=== PATIENT | female | born 1990 | race Caucasian/White ===

== ENCOUNTER → 2020-07-16 10:42 | Outpatient (BNVA) | payer OTHER, SELFPAY | PROVIDERS: Visit Provider Emergency Medicine | DX: M79.671 Pain in right foot (principal); S99.921A Unspecified injury of right foot, initial encounter; X58.XXXA Exposure to other specified factors, initial encounter | CPT/HCPCS: 73630; 80307 ==

== ENCOUNTER 2021-02-23 23:50 | Emergency (ER) | payer SELFPAY ==
[2021-02-24 00:17] VITALS: BP 126/86; PULSE 108; RESP 16; TEMP 36.6; O2SAT 99; BMI 31.3
--- NOTE | 2021-02-24 00:51 | USR_ITS ---
PROCEDURE INFORMATION: Exam: US Duplex Left Lower Extremity Veins, Limited Exam date and time: 02/24/2021 1:00 AM Age: 31 years old Clinical indication: Pain; Leg, upper and leg, lower; Left; Additional info: Pain, swelling, HX of dvts TECHNIQUE: Imaging protocol: Real-time Duplex ultrasound of the Left Lower Extremity with 2-D cameron scale, color Doppler flow and spectral waveform analysis with image documentation. Limited exam focused on the left lower extremity veins. COMPARISON: No relevant prior studies available. FINDINGS: Left deep veins: Unremarkable. The common femoral, femoral, proximal profunda femoral, popliteal, posterior tibial and peroneal veins are patent without thrombus. Normal compressibility, augmentation response and Doppler waveforms. Left superficial veins: Unremarkable. Saphenofemoral junction is patent without thrombus. Soft tissues: Unremarkable. US/CV venous duplex [facility] [id number] IMPRESSION: No sonographic evidence of deep vein thrombosis.
--- NOTE | 2021-02-24 01:07 | ED_ITS ---
HPI - Extremity Problem General: Chief complaint: Extremity Problem,Nontraumatic Stated complaint: lower back and hip pain Time Seen by Provider: 02/23/21 23:56 Source: patient Mode of arrival: wheelchair Limitations: no limitations History of Present Illness: HPI Narrative: Patient is a 31-year-old female who presents to ED today with a complaint of left lower extremity pain. Patient tells me pain initially started approximately 2 weeks ago but has progressively worsened. She feels like her extremity is swollen. She states pain starts at the left lower back and radiates down the posterior aspect of her left thigh and down into her calf. She feels like her thigh and calf are swollen. 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 Patient tells me she is not on anticoagulation as they told her it would require SQ injections in her abdomen and she refused. She reports a previous history of sciatica when she was . MD Complaint: extremity pain and extremity swelling Pain Consistency: constant Location: left and lower extremity Quality: sharp Relieving factors: nothing Exacerbating factors: weight bearing and walking Associated symptoms: Reports no associated symptoms; Deny chest pain or fever(s) Review of Systems Const: Denies: fever(s), chills, body aches, fatigue or malaise Card: Denies: chest pain, palpitations, irregular heart rhythm, edema, swelling of feet/ankles, syncope, pre-syncope, dyspnea on exertion or leg pain with exertion Resp: Denies: dyspnea Musc: Reports: extremity pain and extremity swelling; Denies: joint redness or joint warmth Neuro: Reports: difficulty walking (secondary to pain); Denies: numbness in extremities or sensory changes PFS ED PFSH: Social History (Updated 07/16/20 @ 10:28 by Yulissa Grimaldo CMA) Smoking and tobacco status: current every day smoker cigarettes Packs smoked per day: 1, e-cigarettes E-Cigarette Details: vaporizer device and smokeless tobacco Alcohol intake: former Year of sobriety/quit date alcohol: 2018 Physical Exam Const: COMMON NORMALS: no acute distress, patient oriented x3, no limitations and alert GENERAL APPEARANCE: cooperative Resp: COMMON NORMALS: normal respiratory effort and clear to auscultation bilaterally AUSCULTATION: clear to auscultation bilaterally Cardio: COMMON NORMALS: regular rate and regular rhythm RATE: regular rate RHYTHM: regular rhythm Back/Pelvis: COMMON NORMALS: thoracic and lumbar spine normal to inspection, no thoracic nor lumbar tenderness and thoraco-lumbar ROM normal THORACIC SPINE/UPPER BACK: Yes thoracic ROM normal and No thoracic spinal tenderness LUMBAR SPINE/LOWER BACK: Yes lumbar ROM normal and No lumbar spinal tenderness PELVIS: Yes sciatic notch tenderness SACROILIAC JOINTS: Yes SI joint(s) abnormal SI joint details: tender to palpation and pain elicited by passive hyperextension of lower extremity Extremity: OTHER: pt reports tenderness throughout posterior aspect of L LE; distal pulses intact; brisk cap refill; sensory intact; I do not appreciate any obvious swelling; no color/temp changes noted Neuro: COMMON NORMALS: patient oriented x3 SENSORIUM/ORIENTATION: Yes alert Course Vital Signs: Vital signs: Vital Signs Temperature 97.8 F 02/24/21 00:17 Pulse Rate 108 H 02/24/21 00:17 Respiratory Rate 16 02/24/21 00:17 Blood Pressure 126/86 02/24/21 00:17 Pulse Oximetry 99 02/24/21 00:17 MDM - Extremity (Nontraumatic) MDM Narrative: Medical decision making narrative: Patient's physical exam is consistent with left-sided sciatica however given the patient's history I did obtain ultrasound imaging which was negative for DVT. She will be placed on NSAIDs, muscle relaxers, steroids and recommend follow-up with PCP. Imaging Data^: US venous: My impression: Per US Donita tech-no DVT Discharge Plan Discharge Patient Disposition: Home Clinical Impression: Left sided sciatica Condition: Stable Prescriptions: New cyclobenzaprine 10 mg tablet 10 mg PO TID Qty: 14 RF: 0 ibuprofen 800 mg tablet 800 mg PO Q8H PRN (Reason: pain) Qty: 20 RF: 0 Medrol (Henri) 4 mg tablets,dose pack See Rx Instructions .ROUTE .COMPLEX Qty: 21 RF: 0 Discharge Orders: Discharge ED (Routine); Ordered 02/24/21 Ordered By: Danya Thornton Patient Instructions: Sciatica (ED) Activity Restrictions/Additional Instructions: Please follow-up with your primary care provider in approximately 1 week if symptoms do not improve. You may return to the emergency department for worsening or severe pain, inability to urinate, bowel incontinence, swelling to your leg, color or temperature changes to your extremity, or any other concerns you may have. Coding Level of Care Code ED Social And Political Studies Professor for Chg Fwd Exam Expanded Problem Focused
[2021-02-24] MEDS: orphenadrine 30 mg/mL Inj 2 mL 60 MG IM (01:42)
[2021-02-24] MEDS: ketorolac 60 mg/2 mL INJ IM (01:42)
[2021-02-24 01:50] VITALS: BP 126/86; PULSE 99; RESP 16; O2SAT 99
== END 2021-02-24 01:40 | disposition home or self-care (01) ==
PROVIDERS: Emergency Provider Physician Assistant
DX: M54.32 Sciatica, left side (principal); F17.210 Nicotine dependence, cigarettes, uncomplicated
CPT/HCPCS: 93971; 96372; 99283; J1885; J2360

== ENCOUNTER 2022-01-27 19:18 | Emergency (ER) | payer SELFPAY ==
[2022-01-27 19:19] VITALS: BP 134/74; PULSE 96; RESP 14; TEMP 36.4; O2SAT 99; BMI 31.3
--- NOTE | 2022-01-27 19:31 | XRR_ITS ---
PROCEDURE INFORMATION: Exam: XR Chest Exam date and time: 01/27/2022 7:31 PM Age: 32 years old Clinical indication: Pain; Right-sided; Additional info: Cp TECHNIQUE: Imaging protocol: XR of the chest. Views: 1 view. COMPARISON: No relevant prior studies available. FINDINGS: Lungs: Unremarkable. No consolidation. Pleural spaces: Unremarkable. No pleural effusion. No pneumothorax. Heart/Mediastinum: Unremarkable. No cardiomegaly. Bones/joints: Unremarkable. XR/XR chest 1V portable [id number] IMPRESSION: No acute findings.
--- NOTE | 2022-01-27 19:31 | ECG_ITS ---
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 Measurements Intervals [place]man Rate: 110 P: 76 FL: 134 QRS: 73 QRSD: 81 T: 64 QT: 320 QTc: 433 Interpretive Statements SINUS TACHYCARDIA NONSPECIFIC ST & T-WAVE ABNORMALITY ABNORMAL RHYTHM ECG No previous ECG available for comparison Electronically Signed On 01-27-2022 21:54:12 ECONOMETRICIAN by Espinoza Mcmahan M.D. [id number]
--- NOTE | 2022-01-27 19:40 | ED_ITS ---
HPI - Chest Pain General: Chief Complaint: Chest Pain Stated Complaint: Chest Pain Time Seen by Provider: 01/27/22 19:31 History of Present Illness: Patient states she complains of pain under her right arm axilla area that radiates into her neck and shoulder. Patient says it hurts with deep breath and so she not been breathing the. She is a hurts to push on the area in her right armpit also. Patient denies any shortness of breath nausea or vomiting. But she has had some reflux. Patient vapes on a regular basis. Denies any fever or chills. Has history of blood clots x2 dur ing in her lower extremities that she said she had stents and had to have blood clots suctioned out and she did not get placed on blood thinners chronically. Associated symptoms: Deny abdominal pain, dyspnea, fever(s), nausea or vomiting Review of Systems Narrative: Patient has tenderness in the right armpit area it also extends up to the neck and right shoulder area. Hurts with deep inspiration. Const: Denies: fever(s), chills or body aches Eyes: Denies: eye discomfort ENMT: Denies: throat pain Card: Denies: chest pain Resp: Reports: pain on inspiration (Right chest.); Denies: dyspnea GI: Denies: abdominal pain, nausea or vomiting Skin/Breast: Denies: rash Neuro: Denies: headache(s) Psych: Denies: depression or suicidal ideation [facility] ED PFSH: Social History (Updated 07/16/20 @ 10:28 by Yulissa Grimaldo [facility]) Smoking and tobacco status: current every day smoker cigarettes Packs smoked per day: 1, e-cigarettes E-Cigarette Details: vaporizer device and smokeless tobacco Alcohol intake: former Year of sobriety/quit date alcohol: 2018 Physical Exam 2 Const: COMMON NORMALS: no acute distress, patient oriented x3 and alert HENMT: COMMON NORMALS: normocephalic and external ears normal HEAD & SCALP: normocephalic EXTERNAL EAR: Yes external ears normal Eye: COMMON NORMALS: EOMs intact bilaterally Neck/C-Spine: COMMON NORMALS: no JVD Resp: COMMON NORMALS: normal respiratory effort and No use of accessory muscles Cardio: COMMON NORMALS: no JVD GI: INSPECTION: Yes normal to inspection Extremity: COMMON NORMALS: normal to inspection and full ROM Neuro: COMMON NORMALS: patient oriented x3 SENSORIUM/ORIENTATION: Yes alert Psych: COMMON NORMALS: mental status grossly normal Skin: COMMON NORMALS: no rashes or lesions noted NARRATIVE SKIN EXAM: Tenderness palpation to right armpit right anterior cervical and right anterior shoulder area. GENERAL SKIN EXAM: no rashes or lesions noted Course Vital Signs: Vital signs: Vital Signs Temperature 97.6 F 01/27/22 19:19 Pulse Rate 96 01/27/22 19:19 Respiratory Rate 14 01/27/22 19:19 Blood Pressure 134/74 01/27/22 19:19 Pulse Oximetry 99 01/27/22 19:19 MDM - Chest Pain Medical Decision Making Patient presents with chest wall type pain pain in the right armpit rating up to the neck. Hurts with palpation deep inspiration. Patient denies fever chills or any signs of abscess. Denies any chest heaviness. Denies any nausea or vomiting. Does have slight heartburn at times. Labs did not show elevated white count but did show slight elevated alkaline phos. Troponin was negative. Radiology and EKG were done on were negative. Dimer was negative. Patient encouraged follow-up with primary care provider in either this week and see if need for a HIDA scan and further evaluation is necessary. When treated empirically with antibiotics in case she is developing an abscess down her right armpit area even though I did not feel any lumps or patient has had a history of this in the past. Patient does not have symptoms of gallbladder disease presently and denies vomiting or worsening pain with eating greasy or fatty or fried type foods. Lab Data : 01/27/22 20:15 01/27/22 20:15 Laboratory Results WBC 9.9 10^3/uL (4.0-10.0) 01/27/22 20:15 RBC 4.20 10^6/uL (4.1-5.3) 01/27/22 20:15 Hgb 10.5 g/dL (11.5-15.3) L 01/27/22 20:15 Hct 34.3 % (37.0-47.0) L 01/27/22 20:15 MCV 81.7 fl (81-99) 01/27/22 20:15 MCH 25.0 pg (28.0-34.0) L 01/27/22 20:15 MCHC 30.6 g/dL (30.0-36.0) 01/27/22 20:15 RDW 14.7 % (12.1-15.1) 01/27/22 20:15 Plt Count 360 10^3/cmm (130-400) 01/27/22 20:15 MPV 9.9 fL (7.4-10.4) 01/27/22 20:15 Neut % (Auto) 63.0 % 01/27/22 20:15 Lymph % (Auto) 26.5 % 01/27/22 20:15 Fleming % (Auto) 5.5 % 01/27/22 20:15 Eos % (Auto) 3.3 % 01/27/22 20:15 Baso % (Auto) 1.4 % 01/27/22 20:15 Neut # (Auto) 6.23 10^3/uL (1.8-7.7) 01/27/22 20:15 Lymph # (Auto) 2.6 10^3/uL (0.8-4.8) 01/27/22 20:15 Fleming # (Auto) 0.6 10^3/uL (0.2-0.9) 01/27/22 20:15 Eos # (Auto) 0.3 10^3/uL (0.0-0.8) 01/27/22 20:15 Baso # (Auto) 0.1 10^3/uL (0.0-0.1) 01/27/22 20:15 Nucleated RBC % (auto) 0 % 01/27/22 20:15 Nucleated RBCs # 0.0 /100WBC 01/27/22 20:15 D-Dimer 0.43 ug/mIFEU (0-0.59) 01/27/22 20:15 Sodium 136 mmol/L (136-145) 01/27/22 20:15 Potassium 3.6 mmol/L (3.5-5.1) 01/27/22 20:15 Chloride 99 mmol/L (98-107) 01/27/22 20:15 Carbon Dioxide 23 mmol/L (22-29) 01/27/22 20:15 Anion Gap 17.6 (5-19) 01/27/22 20:15 BUN 9 mg/dL (6-20) 01/27/22 20:15 Creatinine 0.7 mg/dL (0.5-0.9) 01/27/22 20:15 GFR Calculation 97.0 mL/min (90-130) 01/27/22 20:15 Glucose 107 mg/dL (65-115) 01/27/22 20:15 Calculated Osmolality 281 mOsm/kg (285-295) L 01/27/22 20:15 Calcium 10.2 mg/dL (8.5-10.5) 01/27/22 20:15 Total Bilirubin 0.2 mg/dL (0.15-1.2) 01/27/22 20:15 AST 15 U/L (0-32) 01/27/22 20:15 ALT 22 U/L (0-33) 01/27/22 20:15 Alkaline Phosphatase 174 IU/L (35-105) H 01/27/22 20:15 Troponin T Gen 5 ng/L 6 ng/L (0-10) 01/27/22 20:15 Total Protein 8.0 g/dL (6.6-8.7) 01/27/22 20:15 Albumin 4.3 g/dL (3.5-5.2) 01/27/22 20:15 Globulin 3.7 g/dL (1.3-4.6) 01/27/22 20:15 EKG Data EKG 1: Computer generated interpretation: Patient sinus tachycardia ventricular rate 110 bpm ND interval 134 ms QRS duration is 81 ms QT is 320 ms Discharge Plan Discharge Patient Disposition: Home Clinical Impression: Acute chest wall pain Condition: Stable Prescriptions: New clindamycin HCl 300 mg capsule 300 mg PO Q8H 7 Days Qty: 21 0RF Celebrex 100 mg capsule 100 mg PO BID Qty: 20 0RF No Action cyclobenzaprine 10 mg tablet 10 mg PO TID Qty: 14 0RF ibuprofen 800 mg tablet 800 mg PO Q8H PRN (Reason: pain) Qty: 20 0RF Medrol (Henri) 4 mg tablets,dose pack See Rx Instructions .ROUTE .COMPLEX Qty: 21 0RF Rx Instructions: orally per package directions Discharge Orders: Discharge ED (Routine); Ordered 01/27/22 Ordered By: Laurent Layton Discharge Diet: Usual diet Discharge Activity: Increase activity as tolerated Activity Restrictions/Additional Instructions: Follow-up with medical provider as directed. Take medications as prescribed. Return to the ER or your medical provider if condition worsens. Please read and understand discharge instructions. If any questions ask please. Coding Level of Care Code ED Laminator Preforms for Meredithg Fwd Exam Comprehensive
[2022-01-27 20:20] LABS: Basophils # 0.1 10^3/uL (0.0-0.1); Basophils % 1.4 %; Eosinophils # 0.3 10^3/uL (0.0-0.8); Eosinophils % 3.3 %; Hematocrit 34.3 % (37.0-47.0); Hemoglobin 10.5 g/dL (11.5-15.3); Lymphocytes # 2.6 10^3/uL (0.8-4.8); Lymphocytes % 26.5 %; Mean Corpuscular HGB Conc 30.6 g/dL (30.0-36.0); Mean Corpuscular Volume 81.7 fl (81-99); Mean Platelet Volume 9.9 fL (7.4-10.4); Monocytes # 0.6 10^3/uL (0.2-0.9); Monocytes % 5.5 %; Neutrophils # 6.23 10^3/uL (1.8-7.7); Nucleated Red Blood Cells % 0 %; Platelet Count 360 10^3/cmm (130-400); Red Cell Distribution Width 14.7 % (12.1-15.1); White Blood Count 9.9 10^3/uL (4.0-10.0)
[2022-01-27 20:34] LABS: D Dimer 0.43 ug/mIFEU (0-0.59)
[2022-01-27 20:40] LABS: Alanine Aminotransferase 22 U/L (0-33); Albumin Level 4.3 g/dL (3.5-5.2); Alkaline Phosphatase 174 IU/L (35-105); Anion Gap 17.6 (5-19); Aspartate Amino Transferase 15 U/L (0-32); Blood Urea Nitrogen 9 mg/dL (6-20); Calcium 10.2 mg/dL (8.5-10.5); Carbon Dioxide 23 mmol/L (22-29); Chloride 99 mmol/L (98-107); Globulin 3.7 g/dL (1.3-4.6); Glucose 107 mg/dL (65-115); Osmolality Calculated 281 mOsm/kg (285-295); Potassium 3.6 mmol/L (3.5-5.1); Sodium 136 mmol/L (136-145); Total Bilirubin 0.2 mg/dL (0.15-1.2)
[2022-01-27 20:42] LABS: Troponin T (5th) Once 6 ng/L (0-10)
[2022-01-27] MEDS: ketorolac 30 mg/mL INJ IVP (21:07)
== END 2022-01-27 21:09 | disposition home or self-care (01) ==
PROVIDERS: Emergency Provider Nurse Practitioner Family
DX: R07.1 Chest pain on breathing (principal); R07.89 Other chest pain; F17.210 Nicotine dependence, cigarettes, uncomplicated
CPT/HCPCS: 71045; 80053; 84484; 85025; 85378; 93005; 96374; 99283; J1885

== ENCOUNTER 2022-02-12 00:06 | Emergency (ER) | payer SELFPAY ==
[2022-02-12 00:16] VITALS: BP 135/77; PULSE 100; RESP 18; TEMP 36.4; O2SAT 98; BMI 33.3
[2022-02-12 01:12] LABS: Basophils # 0.1 10^3/uL (0.0-0.1); Basophils % 1.5 %; Eosinophils # 0.4 10^3/uL (0.0-0.8); Eosinophils % 4.7 %; Hematocrit 36.3 % (37.0-47.0); Hemoglobin 10.9 g/dL (11.5-15.3); Lymphocytes # 2.1 10^3/uL (0.8-4.8); Lymphocytes % 27.2 %; Mean Corpuscular Hemoglobin 25.1 pg (28.0-34.0); Mean Corpuscular Volume 83.6 fl (81-99); Mean Platelet Volume 9.7 fL (7.4-10.4); Monocytes # 0.4 10^3/uL (0.2-0.9); Monocytes % 5.6 %; Neutrophils # 4.74 10^3/uL (1.8-7.7); Neutrophils % 60.6 %; Nucleated Red Blood Cells % 0 %; Platelet Count 356 10^3/cmm (130-400); Red Blood Count 4.34 10^6/uL (4.1-5.3); Red Cell Distribution Width 14.7 % (12.1-15.1); White Blood Count 7.8 10^3/uL (4.0-10.0)
--- NOTE | 2022-02-12 01:12 | USR_ITS ---
PROCEDURE INFORMATION: Exam: US Abdomen, Limited; Right Upper Quadrant Exam date and time: 02/12/2022 1:12 AM Age: 32 years old Clinical indication: Nausea; Abdominal pain; Additional info: Ruq pain and nausea TECHNIQUE: Imaging protocol: US abdomen. Real time ultrasound with image documentation. Limited exam focused on the right upper quadrant. COMPARISON: No relevant prior studies available. FINDINGS: Liver: Normal. No masses. Gallbladder: Normal. No gallstones. There is no gallbladder wall thickening. Common bile duct: Normal. No stones. No dilation. Pancreas: Visualized pancreas is unremarkable. Right kidney: Normal. No mass. No hydronephrosis. US/US gall bladder [id number] IMPRESSION: No acute findings.
--- NOTE | 2022-02-12 01:13 | W.ED.ABDPA2 ---
Documented by User: LONG Swanson 02/12/22 17:11 HPI - Abdominal Pain General: Chief Complaint: Abdominal Pain Stated Complaint: ABD Pain Poss Gall Bladder Time Seen by Provider: 02/12/22 01:04 History of Present Illness: Patient is a 32-year-old female who comes to the ED with abdominal pain. Symptoms started around 9 PM tonight. She reports having constant burning type pain in right upper quadrant of abdomen. It radiates to the mid lower back. She rates it currently a 9 out of 10. She also endorses some nausea but has not had any episodes of emesis today. She says she did not have an appetite today as well. Reports having some diarrhea over the last week. Patient saw her primary care physician this morning and they were going to set her up for an outpatient ultrasound of gallbladder. Denies fever, chills, shortness of breath, chest pain, blood in the stool, dysuria, hematuria, vaginal discharge or any vaginal lesions. Patient says she is currently on her menstrual period. Associated Symptoms: Reports diarrhea and nausea; Denies chills, constipation, dysuria, fever(s), hematochezia, hematuria and vomiting Review of Systems Const: Denies: fever(s), chills or fatigue Eyes: Denies: change in vision or eye discomfort ENMT: Denies: throat pain, odynophagia, nasal discharge or nasal congestion Card: Denies: chest pain, palpitations, edema, swelling of feet/ankles, dyspnea on exertion or orthopnea Resp: Denies: dyspnea, productive cough or non-productive cough GI: Reports: abdominal pain, nausea and diarrhea; Denies: vomiting, constipation or hematochezia : Reports: flank pain (right flank pain); Denies: dysuria or hematuria Musc: Denies: neck pain, back pain or extremity swelling Skin/Breast: Denies: rash or new lesions Neuro: Denies: headache(s), numbness in extremities or weakness in extremities PFS ED PFSH: Medical History No pertinent family history Surgical History No pertinent past surgical history Social History Smoking and tobacco status: current every day smoker cigarettes Packs smoked per day: 1, e-cigarettes E-Cigarette Details: vaporizer device and smokeless tobacco Alcohol intake: former Year of sobriety/quit date alcohol: 2018 Physical Exam Const: COMMON NORMALS: no acute distress, patient oriented x3 and alert GENERAL APPEARANCE: cooperative and comfortable HENMT: COMMON NORMALS: normocephalic HEAD & SCALP: normocephalic MOUTH: Normal oral and palatal mucosa present THROAT: posterior oropharynx normal and uvula midline Eye: COMMON NORMALS: Equal, round and reactive pupils present and conjunctivae normal CONJUNCTIVA: Yes conjunctivae normal PUPIL: Yes Equal, round and reactive pupils present Neck/C-Spine: COMMON NORMALS: supple GENERAL: Yes normal visual inspection Resp: COMMON NORMALS: normal respiratory effort, No retractions, No use of accessory muscles and clear to auscultation bilaterally AUSCULTATION: clear to auscultation bilaterally Cardio: COMMON NORMALS: regular rate, regular rhythm, S1 normal heart sound present, S2 normal heart sound present, No gallops present (Cardio), No clicks present (Cardio), No murmurs present (Cardio) and Peripheral pulses 2+ throughout RATE: regular rate RHYTHM: regular rhythm HEART SOUNDS: S1 normal heart sound present and S2 normal heart sound present PERIPHERAL PULSES: Peripheral pulses 2+ throughout GI: COMMON NORMALS: Normal to inspection, nondistended, normoactive bowel sounds present, Soft to palpation and no masses INSPECTION: Yes central obesity PALPATION: Yes Soft to palpation and Yes Tenderness to palpation present (GI) Details: RUQ (positive murray's sign) : COMMON NORMALS: Yes no CVA tenderness BLADDER/KIDNEY EXAM: Yes no CVA tenderness Back/Pelvis: COMMON NORMALS: no CVA tenderness Extremity: COMMON NORMALS: normal to inspection Neuro: COMMON NORMALS: patient oriented x3 SENSORIUM/ORIENTATION: Yes alert GAIT: Yes Normal gait present Skin: GENERAL SKIN EXAM: dry skin Course Vital Signs: Vital signs: Vital Signs Temperature 97.5 F L 02/12/22 00:16 Pulse Rate 91 02/12/22 03:46 Respiratory Rate 18 02/12/22 03:46 Blood Pressure 111/72 02/12/22 04:22 Pulse Oximetry 98 02/12/22 04:22 MDM - Abdominal Pain Medical Decision Making Patient is a 32-year-old female comes to the ED with sudden onset of right flank and right upper quadrant abdominal pain a couple hours ago.She has some nausea with it but denies any vomiting. Denies any fevers, bladder or bowel symptoms. Vitals are stable. Patient appears nontoxic in no acute distress. She has some right upper quadrant tenderness along with some right flank tenderness. Rest of exam is benign. Hemoglobin was 10.9 the rest of CBC CMP, lipase were unremarkable. hCG was negative. UA showed a lot of RBCs. Ultrasound of gallbladder was done that showed no acute findings. CT abdomen showed no acute findings and no kidney stone seen. I handed patient off to Dr. Rees at the end of my shift and imaging reports were pending. Patient was cleared for discharge home by Dr. Jeffery. She was diagnosed with abdominal pain, anemia and hematuria. She was sent home with a prescription for Pepcid. She was told to follow-up with the PCP in the next 5 to 7 days reevaluation. Return ED precautions given. Patient understood and agreed with plan. Lab Data I reviewed the patient's lab results. : 02/12/22 01:08 02/12/22 01:08 Labs/Radiology: Radiology Impressions Gallbladder Ultrasound 02/12/22 01:12 IMPRESSION: No acute findings. Abdomen/Pelvis CT 02/12/22 02:03 IMPRESSION: No acute findings. Laboratory Results WBC 7.8 10^3/uL (4.0-10.0) 02/12/22 01:08 RBC 4.34 10^6/uL (4.1-5.3) 02/12/22 01:08 Hgb 10.9 g/dL (11.5-15.3) L 02/12/22 01:08 Hct 36.3 % (37.0-47.0) L 02/12/22 01:08 MCV 83.6 fl (81-99) 02/12/22 01:08 MCH 25.1 pg (28.0-34.0) L 02/12/22 01:08 MCHC 30.0 g/dL (30.0-36.0) 02/12/22 01:08 RDW 14.7 % (12.1-15.1) 02/12/22 01:08 Plt Count 356 10^3/cmm (130-400) 02/12/22 01:08 MPV 9.7 fL (7.4-10.4) 02/12/22 01:08 Neut % (Auto) 60.6 % 02/12/22 01:08 Lymph % (Auto) 27.2 % 02/12/22 01:08 Cocke % (Auto) 5.6 % 02/12/22 01:08 Eos % (Auto) 4.7 % 02/12/22 01:08 Baso % (Auto) 1.5 % 02/12/22 01:08 Neut # (Auto) 4.74 10^3/uL (1.8-7.7) 02/12/22 01:08 Lymph # (Auto) 2.1 10^3/uL (0.8-4.8) 02/12/22 01:08 Cocke # (Auto) 0.4 10^3/uL (0.2-0.9) 02/12/22 01:08 Eos # (Auto) 0.4 10^3/uL (0.0-0.8) 02/12/22 01:08 Baso # (Auto) 0.1 10^3/uL (0.0-0.1) 02/12/22 01:08 Nucleated RBC % (auto) 0 % 02/12/22 01:08 Nucleated RBCs # 0.0 /100WBC 02/12/22 01:08 Sodium 137 mmol/L (136-145) 02/12/22 01:08 Potassium 4.1 mmol/L (3.5-5.1) 02/12/22 01:08 Chloride 102 mmol/L (98-107) 02/12/22 01:08 Carbon Dioxide 23 mmol/L (22-29) 02/12/22 01:08 Anion Gap 16.1 (5-19) 02/12/22 01:08 BUN 8 mg/dL (6-20) 02/12/22 01:08 Creatinine 0.6 mg/dL (0.5-0.9) 02/12/22 01:08 GFR Calculation 115.9 mL/min (90-130) 02/12/22 01:08 Glucose 112 mg/dL (65-115) 02/12/22 01:08 Calculated Osmolality 283 mOsm/kg (285-295) L 02/12/22 01:08 Calcium 9.0 mg/dL (8.5-10.5) 02/12/22 01:08 Total Bilirubin 0.3 mg/dL (0.15-1.2) 02/12/22 01:08 AST 16 U/L (0-32) 02/12/22 01:08 ALT 22 U/L (0-33) 02/12/22 01:08 Alkaline Phosphatase 155 IU/L (35-105) H 02/12/22 01:08 Total Protein 7.6 g/dL (6.6-8.7) 02/12/22 01:08 Albumin 4.4 g/dL (3.5-5.2) 02/12/22 01:08 Globulin 3.2 g/dL (1.3-4.6) 02/12/22 01:08 Lipase 19 U/L (13-60) 02/12/22 01:08 HCG, Qual Negative (Negative) 02/12/22 01:08 Urine Color Yellow (Yellow) 02/12/22 01:20 Urine Appearance Sl hazy (CLEAR) 02/12/22 01:20 Urine pH 6 (5-7) 02/12/22 01:20 Ur Specific Hooks 1.005 (1.005-1.030) 02/12/22 01:20 Urine Protein Neg (Negative) 02/12/22 01:20 Urine Glucose (UA) Norm (Normal) 02/12/22 01:20 Urine Ketones Negative (Negative) 02/12/22 01:20 Urine Blood 3+ (Negative) H 02/12/22 01:20 Urine Nitrate Negative (Negative) 02/12/22 01:20 Urine Bilirubin Neg (Negative) 02/12/22 01:20 Urine Urobilinogen Norm mg/dL (Negative) 02/12/22 01:20 Ur Leukocyte Esterase Negative (Negative) 02/12/22 01:20 Urine RBC >100 /hpf (0-2) H 02/12/22 01:20 Urine WBC 0-4 /hpf (0-5) H 02/12/22 01:20 Ur Squamous Epith Cells 0-4 /hpf (0-5) H 02/12/22 01:20 Amorphous Sediment Not Reportable 02/12/22 01:20 Urine Bacteria Trace /hpf (NONE) 02/12/22 01:20 Discharge Plan Discharge Patient Disposition: Home Clinical Impression: Abdominal pain, Anemia, Hematuria Condition: Stable Prescriptions: New Pepcid 40 mg tablet 40 mg PO DAILY Qty: 20 0RF No Action cyclobenzaprine 10 mg tablet 10 mg PO TID Qty: 14 0RF ibuprofen 800 mg tablet 800 mg PO Q8H PRN (Reason: pain) Qty: 20 0RF Medrol (Henri) 4 mg tablets,dose pack See Rx Instructions .ROUTE .COMPLEX Qty: 21 0RF Rx Instructions: orally per package directions Celebrex 100 mg capsule 100 mg PO BID Qty: 20 0RF Discharge Orders: Discharge ED (Routine); Ordered 02/12/22 Ordered By: Edward Rees Discharge Diet: Advance as tolerated and Clear Liquid Discharge Activity: Resume usual activity Patient Instructions: Hematuria (ED), Abdominal Pain (ED), Opioid Safety Activity Restrictions/Additional Instructions: Thank you for visiting the emergency department. You were seen and evaluated for abdominal pain. The exact cause of your symptoms is unclear though does not require hospitalization at this time. Please follow-up with your primary care provider. Please return to the emergency department for worsening symptoms or anything else that you are concerned about and feel needs emergency department evaluation. Sign Out Sign Out Data: Patient Sign Out occurred on 02/12/22 at 03:34. Patient's care was discussed, and care was transferred from to Edward Rees MD. Coding Level of Care Code ED [employer] for Chg Fwd Exam Comprehensive Documented by User: Edward Rees MD 02/15/22 08:26 HPI - Abdominal Pain General: Chief Complaint: Abdominal Pain Stated Complaint: ABD Pain Poss Gall Bladder Time Seen by Provider: 02/12/22 01:04 [facility] ED PFSH: Medical History No pertinent family history Surgical History No pertinent past surgical history Social History Smoking and tobacco status: current every day smoker cigarettes Packs smoked per day: 1, e-cigarettes E-Cigarette Details: vaporizer device and smokeless tobacco Alcohol intake: former Year of sobriety/quit date alcohol: 2017 Course Vital Signs: Vital signs: Vital Signs Temperature 97.5 F L 02/12/22 00:16 Pulse Rate 91 02/12/22 03:46 Respiratory Rate 18 02/12/22 03:46 Blood Pressure 111/72 02/12/22 04:22 Pulse Oximetry 98 02/12/22 04:22 MDM - Abdominal Pain Medical Decision Making Patient is a 32-year-old female comes to the ED with sudden onset of right flank and right upper quadrant abdominal pain a couple hours ago.She has some nausea with it but denies any vomiting. Denies any fevers, bladder or bowel symptoms. Vitals are stable. Patient appears nontoxic in no acute distress. She has some right upper quadrant tenderness along with some right flank tenderness. Rest of exam is benign. Hemoglobin was 10.9 the rest of CBC CMP, lipase were unremarkable. hCG was negative. UA showed a lot of RBCs. Ultrasound of gallbladder was done that showed no acute findings. CT abdomen showed no acute findings and no kidney stone seen. I handed patient off to Dr. Rees at the end of my shift and imaging reports were pending. Patient was cleared for discharge home by Dr. Jeffery. She was diagnosed with abdominal pain, anemia and hematuria. She was sent home with a prescription for Pepcid. She was told to follow-up with the PCP in the next 5 to 7 days reevaluation. Return ED precautions given. Patient understood and agreed with plan. Patient care handoff received from Antonio by LONG pending completion of ED evaluation. I personally saw and evaluated the patient. I have reviewed labs, imaging, and documentation. I reperformed gregg portions of EM. Patient improved with symptom treatment and satisfactory discharge. Edward Rees MD Emergency Medicine Lab Data : 02/12/22 01:08 02/12/22 01:08 Labs/Radiology: Radiology Impressions Gallbladder Ultrasound 02/12/22 01:12 IMPRESSION: No acute findings. Abdomen/Pelvis CT 02/12/22 02:03
[2022-02-12 01:31] LABS: HCG, Serum Qual Negative (Negative)
[2022-02-12 01:34] LABS: Alanine Aminotransferase 22 U/L (0-33); Albumin Level 4.4 g/dL (3.5-5.2); Alkaline Phosphatase 155 IU/L (35-105); Anion Gap 16.1 (5-19); Aspartate Amino Transferase 16 U/L (0-32); Blood Urea Nitrogen 8 mg/dL (6-20); Carbon Dioxide 23 mmol/L (22-29); Chloride 102 mmol/L (98-107); Globulin 3.2 g/dL (1.3-4.6); Glomerular Filtration Rate 115.9 mL/min (90-130); Glucose 112 mg/dL (65-115); Lipase 19 U/L (13-60); Osmolality Calculated 283 mOsm/kg (285-295); Potassium 4.1 mmol/L (3.5-5.1); Sodium 137 mmol/L (136-145); Total Bilirubin 0.3 mg/dL (0.15-1.2); Total Protein 7.6 g/dL (6.6-8.7)
[2022-02-12 01:34] LABS: Add Urine Microscopic? YES; Bilirubin Urine Neg (Negative); Blood Urine 3+ (Negative); Glucose Urine UA Norm (Normal); Ketones Urine Negative (Negative); Leukocyte Esterase Urine Negative (Negative); Nitrate Urine Negative (Negative); Protein Urine Neg (Negative); Specific Gravity, Urine 1.005 (1.005-1.030); Urine Appearance SL Hazy (CLEAR); Urine Color Yellow (Yellow); Urobilinogen Urine Norm (Negative); pH Urine 6 (5-7)
[2022-02-12 01:35] LABS: Add Urine Culture? Yes; Bacteria Urine TRACE /hpf; RBC Urine >100 /hpf (0-2); Squamous Epithelial Cell Urine 0-4 /hpf (0-5); WBC Urine 0-4 /hpf (0-5)
[2022-02-12] MEDS: ondansetron 2 mg/ML SDV 2 mL 4 MG IVP (01:35)
[2022-02-12] MEDS: sodium chloride 0.9% 500 ML 999 ML IV (01:35)
--- NOTE | 2022-02-12 02:03 | CTR_ITS ---
PROCEDURE INFORMATION: Exam: CT Abdomen And Pelvis Without Contrast Exam date and time: 02/12/2022 2:03 AM Age: 32 years old Clinical indication: Abdominal pain; Flank; Right; Additional info: Acute right sided abdominal pain and right flank pain TECHNIQUE: Imaging protocol: Computed tomography of the abdomen and pelvis without contrast. Radiation optimization: All CT scans at this facility use at least one of these dose optimization techniques: automated exposure control; mA and/or kV adjustment per patient size (includes targeted exams where dose is matched to clinical indication); or iterative reconstruction. COMPARISON: US gall bladder [id number] 02/12/2022 1:52 AM RADIATION DOSE METRICS: Total DLP (mGy-cm): 1693.63 FINDINGS: Liver: Normal. No mass. Gallbladder and bile ducts: Normal. No calcified stones. No ductal dilation. Pancreas: Normal. No ductal dilation. Spleen: Normal. No splenomegaly. Adrenal glands: Normal. No mass. Kidneys and ureters: Normal. No hydronephrosis. Stomach and bowel: Unremarkable. No obstruction. No mucosal thickening. Appendix: No evidence of appendicitis. Intraperitoneal space: Unremarkable. No free air. No significant fluid collection. Vasculature: Unremarkable. No abdominal aortic aneurysm. Lymph nodes: Unremarkable. No enlarged lymph nodes. Urinary bladder: Unremarkable as visualized. Reproductive: Unremarkable as visualized. Bones/joints: Unremarkable. No acute fracture. Soft tissues: Unremarkable. CT/CT kidney stone [id number] IMPRESSION: No acute findings.
[2022-02-12 03:46] VITALS: BP 118/69; PULSE 91; RESP 18; O2SAT 95
[2022-02-12 04:22] VITALS: BP 111/72; O2SAT 98
== END 2022-02-12 04:24 | disposition home or self-care (01) ==
PROVIDERS: Physician Assistant; Emergency Provider Emergency Medicine
DX: R10.9 Unspecified abdominal pain (principal); D64.9 Anemia, unspecified; R31.9 Hematuria, unspecified; F17.290 Nicotine dependence, other tobacco product, uncomplicated
CPT/HCPCS: 74176; 76705; 80053; 81001; 83690; 84703; 85025; 87086; 96374; 99283; J2405; J7040

== ENCOUNTER 2024-09-12 12:17 | Emergency (ER) | payer SELFPAY ==
[2024-09-12 12:36] VITALS: BP 127/79; PULSE 83; RESP 16; TEMP 36.6; O2SAT 98; BMI 26.6
--- NOTE | 2024-09-12 14:20 | XRR_ITS ---
PROCEDURE INFORMATION: Exam: XR Right Elbow Exam date and time: 09/12/2024 2:27 PM Age: 34 years old Clinical indication: Right; Patient HX: RT medial elbow pain; No known injury; HX RT elbow tinnitus TECHNIQUE: Imaging protocol: Radiologic exam of the right elbow. Views: 3 or more views. COMPARISON: No relevant prior studies available. FINDINGS: Bones/joints: Normal. Soft tissues: Normal. XR/XR elbow RT min 3V* [id number] IMPRESSION: No acute findings.
--- NOTE | 2024-09-12 14:20 | W.ED.EXTPRO ---
HPI - Extremity Problem General: Chief complaint: Extremity Problem,Nontraumatic Stated complaint: elbow is swollen, pain Time Seen by Provider: 09/12/24 14:15 History of Present Illness: Patient comes in today for complaints of tenderness to the lateral and medial aspects of the elbow. Patient reports the lateral side seems worse than the medial side. Patient has been treated before with a steroid injection by primary care about 6 months ago. Patient did have some mild relief but has never really gotten rid of the pain completely. Associated symptoms: Deny fever(s) Related Data Previous Rx's Medication Instructions Recorded cyclobenzaprine 10 mg tablet 10 mg PO TID #14 tabs 02/24/21 famotidine 40 mg tablet (Pepcid) 40 mg PO DAILY #20 tabs 02/12/22 diclofenac sodium 75 mg 75 mg PO Q12H #20 tabs 09/12/24 tablet,delayed release Allergies Allergy/AdvReac Type Severity Reaction Status Date / Time camphor [From [employer] Vaporub] Allergy ALGY-Hives Verified 02/24/21 00:23 chlorpheniramine Allergy ALGY-Hives Verified 02/24/21 00:23 [From [employer] DayQuil] dextromethorphan Allergy ALGY-Hives Verified 02/24/21 00:23 [From [employer] DayQuil] doxylamine Allergy ALGY-Hives Verified 02/24/21 00:23 [From [employer] NyQuil Cold/Flu Liquicap] eucalyptus Allergy ALGY-Hives Verified 02/24/21 00:23 [From [employer] Vaporub] guaifenesin Allergy ALGY-Hives Verified 02/24/21 00:23 [From [employer] DayQuil] menthol [From [employer]] Allergy ALGY-Hives Verified 02/24/21 00:23 morphine Allergy hives Verified 07/16/20 10:26 oxycodone Allergy ALGY-Anaphy Verified 02/24/21 00:23 laxis petrolatum,white Allergy ALGY-Hives Verified 02/24/21 00:23 [From [employer]apor[employer]] phenylpropanolamine Allergy ALGY-Hives Verified 02/24/21 00:23 [From [employer] DayQuil] pseudoephedrine Allergy ALGY-Hives Verified 02/24/21 00:23 [From [employer] DayQuil] turpentine oil Allergy ALGY-Hives Verified 02/24/21 00:23 [From [employer]aporub] Review of Systems General: Reports: 10 or more systems reviewed and unremarkable except in HPI and below Const: Denies: fever(s) Musc: Reports: joint pain (Right elbow) [facility] ED PFSH: Medical History No pertinent family history Surgical History No pertinent past surgical history Social History Smoking and tobacco/nicotine status: current every day tobacco/nicotine user cigarettes Packs smoked per day: 1, e-cigarettes E-Cigarette Details: vaporizer device and smokeless tobacco Alcohol intake: former Year of sobriety/quit date alcohol: 2017 Substance/Drug Use: former Date of last use: 2017 Female Reproductive History: Date of last menstrual period: 09/11/24 Physical Exam Const: COMMON NORMALS: alert HENMT: COMMON NORMALS: normocephalic HEAD & SCALP: normocephalic Neck/C-Spine: COMMON NORMALS: full ROM Chest: COMMONS NORMALS: normal inspection of the chest Resp: COMMON NORMALS: normal respiratory effort Cardio: COMMON NORMALS: regular rate RATE: regular rate GI: COMMON NORMALS: Soft to palpation PALPATION: Yes Soft to palpation Back/Pelvis: COMMON NORMALS: thoracic and lumbar spine normal to inspection Extremity: COMMON NORMALS: full ROM RIGHT UPPER EXTREMITY: Yes elbow joint (Medial and lateral tenderness, no redness or induration) Neuro: SENSORIUM/ORIENTATION: Yes alert Skin: COMMON NORMALS: turgor normal GENERAL SKIN EXAM: turgor normal Course Vital Signs: Vital signs: Vital Signs Temperature 97.9 F 09/12/24 12:36 Pulse Rate 83 09/12/24 12:36 Respiratory Rate 16 09/12/24 12:36 Blood Pressure 127/79 09/12/24 12:36 Pulse Oximetry 98 09/12/24 12:36 Oxygen Delivery Me thod Room Air 09/12/24 12:36 MDM - Extremity (Nontraumatic) Medical Decision Making Patient comes in today for complaints of right elbow pain. On exam there is no significant swelling or redness. Distal pulses sensation are intact. Range of motion is intact. Patient does have tenderness on the medial and lateral aspects of the elbow. Differential diagnosis epicondylitis, tendinitis, sprain, arthritis, malingering. Patient was given 30 mg Toradol for pain. X-ray was unremarkable. Recommend follow-up with data specialist for recurrent epicondylitis. Case management requested for appointment. Patient agreed with plan. XR interpretation done by ED provider, pending radiology final review Discharge Plan Discharge Patient Disposition: Home Clinical Impression: Epicondylitis, lateral, right Condition: Stable Prescriptions: New diclofenac sodium 75 mg tablet,delayed release (DR/EC) 75 mg PO Q12H Qty: 20 0RF Discontinued ibuprofen 800 mg tablet 800 mg PO Q8H PRN (Reason: pain) Qty: 20 0RF methylprednisolone [Medrol (Henri)] 4 mg tablets,dose pack See Rx Instructions .ROUTE .COMPLEX Qty: 21 0RF Rx Instructions: orally per package directions celecoxib [Celebrex] 100 mg capsule 100 mg PO BID Qty: 20 0RF No Action cyclobenzaprine 10 mg tablet 10 mg PO TID Qty: 14 0RF Pepcid 40 mg tablet 40 mg PO DAILY Qty: 20 0RF Discharge Orders: Discharge ED (Routine); Ordered 09/12/24 Ordered By: Timur Blackmon Discharge Diet: Usual diet Discharge Activity: Increase activity as tolerated Patient Instructions: Lateral Epicondylitis Activity Restrictions/Additional Instructions: Home and rest. Activity as tolerated. Use ice or heat to the area to help with pain. Drink plenty of water with medication. Follow-up with primary care in 3 to 5 days for recheck. Case management will contact you regarding follow-up with orthopedist specialist for further evaluation and treatment. Stand Alone Forms: Work/School Release Coding Level of Care Code ED [employer] Operator for Melissa Linn
[2024-09-12 15:20] VITALS: BP 138/82; PULSE 75; O2SAT 100
[2024-09-12] MEDS: ketorolac 30 mg/mL INJ IM (15:20)
--- NOTE | 2024-09-13 07:13 | DCPLANNER ---
messaged ortho for er f/u
== END 2024-09-12 15:24 | disposition home or self-care (01) ==
PROVIDERS: Emergency Provider Nurse Practitioner Family
DX: M77.11 Lateral epicondylitis, right elbow (principal); F17.210 Nicotine dependence, cigarettes, uncomplicated; F17.290 Nicotine dependence, other tobacco product, uncomplicated; F17.220 Nicotine dependence, chewing tobacco, uncomplicated
CPT/HCPCS: 73080; 96372; 99284; J1885